=== PATIENT | female | born 1940 | race Caucasian/White ===

== ENCOUNTER 2016-12-19 21:24 | Inpatient (IN) | payer BC, OTHER ==
--- NOTE | ~2016-12-19 | HP ---
History And Physical [place] [id number] [facility] [place]. [address] NAME: LALA INGRAM : 40 STATUS : ADM IN [facility]#: [id number] AGE: 76 ADM/REG DATE : 12/20/16 MR#: [id number] REPORT SERV DATE: 12/20/16 DICTATED BY: SEEMA LEONARDO DATE: 12/20/16 REPORT STATUS : Draft TRANSCRIBED BY: MODL DATE: 12/20/16 DATE OF ADMISSION: 12/20/2016 CHIEF COMPLAINT: Abnormal lab. HISTORY OF PRESENT ILLNESS: A 76-year-old white female transferred from [facility] to [facility] Emergency Room for the above complaint. Due to the patient's ventilatory status, full history and physical exam difficult to obtain. Chart and staff were reviewed. The patient is followed by [facility] at [facility] for multiple chronic problems-please see old notes. Unfortunately her main one is respiratory failure and on chronic trach and ventilator. Her baseline labs tend to run around BUN of 40 to 50s and creatinine from 1 to 2s with GFR from 46 down to 20. She had normal labs drawn and was noted to have abnormal labs. She was therefore sent to the emergency room for workup. There the patient was found to be hypotensive for a questionable reason, acute kidney injury, hyperkalemic, and other multiple abnormalities, therefore she was admitted to the ICU for continued medical care. Currently, the patient is on the vent, somewhat more alert, is doing better overall, and is being followed by Nephrology. ALLERGIES: SULFA. MEDICATIONS: Please see MAR. PAST MEDICAL HISTORY: The patient is currently at [facility] for chronic respiratory failure with trach and vent, morbid obesity, hypertension, obstructive sleep apnea, cor pulmonale, history of atrial fibrillation, history of CVA, COPD, asthma, CHF of questionable kind, obesity, hypoventilatory syndrome, pulmonary hypertension, and anxiety. PAST SURGICAL HISTORY: Trach, cholecystectomy, colon surgery, cataract surgery, hysterectomy, appendectomy, knee surgery, and pacemaker. SOCIAL HISTORY: The patient resides at [facility] at [facility], , does have a daughter, former smoker. FAMILY HISTORY: Mother with stroke; father with coronary artery disease; and sister with cancer. REVIEW OF SYSTEMS: Unable to obtain due to the patient's decreased mental status. PHYSICAL EXAMINATION: VITAL SIGNS: Please see ICU flow sheet. GENERAL: White female responds to simple questions. HEAD: Normocephalic, atraumatic. History And Physical [address] [address] NAME: LALA INGRAM : 40 STATUS : ADM IN [facility]#: [id number] AGE: 76 ADM/REG DATE : 12/20/16 MR#: [id number] REPORT SERV DATE: 12/20/16 DICTATED BY: SEEMA LEONARDO DATE: 12/20/16 REPORT STATUS : Draft TRANSCRIBED BY: MODRohini DATE: 12/20/16 EYES: Anicteric. ENT: Poor dentition. NECK: Trach with no redness or swelling or discharge. She does have a right-sided rash on her neck area of questionable etiology. LUNGS: Bilateral upper respiratory congestion. HEART: Currently she is regular rate and rhythm without murmurs, gallops, or rubs. ABDOMEN: Obese, old surgical scars, otherwise nontender. : Mendoza is present with urine output. EXTREMITY: Wasting is present. LYMPH: Trace edema. MUSCULOSKELETAL: Good movement. NEUROLOGIC: Responds to simple commands. LABORATORY DATA: CBC shows WBC 6, H and H 9.2 and 30.2, and PLT 234. INR 1.1. Chemistry shows Na 141, K 6.8, CO 109, CO2 of 25, BUN 114, creatinine 2.84, GFR 15. Glucose 109. Calcium 8.2 (L). Magnesium 3.1(H). Albumin 2.9 (L). Liver function tests are unremarkable. Beta natriuretic peptide is 287. Initial cardiac enzymes negative. A.m. cortisol level was fine at 29.3. Initial blood gas showed pH 7.23, pCO2 of 53, PO2 of 132, bicarb 21, and O2 saturation 96% on SIMV ventilatory settings. Urinalysis initially done by Mendoza collection is cloudy with large LE and many wbc's and few bacteria. Cultures pending at this time. IMAGING: Chest x-ray initially done in the emergency room shows venous congestion, interstitial edema with left basilar consolidation or atelectasis, and questionable small left pleural effusion. There also continues to be right basilar atelectasis. CT abdomen and pelvis. There is mildly distended redundant sigmoid colon although no manolo bowel obstruction is seen. Bibasilar atelectasis, mild cardiomegaly, otherwise unremarkable. CONSULTATION: Renal consult-appreciate their help. IMPRESSION: 1. Acute respiratory failure with hypercapnia and hypoxic symptoms on chronic vent with trach. 2. Hypotension-questionable cause. 3. Acute kidney injury on chronic kidney disease stage 4 to 5 at this time. 4. Anemia-chronic disease. 5. Pyuria. 6. Metabolic acidosis with acute respiratory acidosis. 7. History of chronic obstructive pulmonary disease and asthma. 8. Obstructive sleep apnea with obesity hypoventilatory syndrome. 9. Morbid obesity. 10.Pulmonary hypertension. PLAN: 1. We will follow ventilatory status. The patient is on Passy-Mayra valve during the day and vent at night. We will watch symptoms and treat accordingly. The patient is at [address] [address] NAME: LALA INGRAM : 40 STATUS : ADM IN [facility]#: [id number] AGE: 76 ADM/REG DATE : 12/20/16 MR#: [id number] REPORT SERV DATE: 12/20/16 DICTATED BY: SEEMA LEONARDO DATE: 12/20/16 REPORT STATUS : Draft TRANSCRIBED BY: MODL DATE: 12/20/16 risk for worsening symptoms. 2. The patient is resolving her hypercapnic respiratory failure. We will watch her O2 sats and follow symptoms otherwise. 3. Consult Renal and follow with them. The patient is at risk for end-stage renal disease. 4. Follow H and H as the patient is at risk for worsening hypoxia with decreased H and H. 5. Follow up on urine and treat accordingly as the patient is at risk for pyelonephritis. 6. Continue medications as the patient is at risk for acute exacerbation of her COPD. 7. Head of bed at 30 degrees and we will feed but the patient is at risk for aspiration. 8. DVT precautions with sequential pneumatic device and anticoagulation. RH/MODL Seema Leonardo M.D. / [id number] CC: Nhan Robins M.D.
--- NOTE | ~2016-12-19 | CN ---
Consultation Report [facility] [address] [place]. [address] NAME: LALA INGRAM : 40 STATUS : ADM IN [facility]#: [id number] AGE: 76 ADM/REG DATE : 12/20/16 MR#: [id number] REPORT SERV DATE: 12/22/16 DICTATED BY: BRUNO CHAN DATE: 12/21/16 REPORT STATUS : Draft TRANSCRIBED BY: MODL DATE: 12/21/16 CARDIOLOGY CONSULT DATE OF CONSULTATION: 12/21/2016 REQUESTING PHYSICIAN: Hector King M.D. REASON FOR CONSULTATION: Abnormal troponin. HISTORY OF PRESENT ILLNESS: Ms. Ingram is a 76-year-old female with multiple medical problems, including chronic respiratory failure status post tracheostomy; history of atrial flutter, on Eliquis; sick sinus syndrome, status post permanent pacemaker; COPD; and chronic diastolic heart failure (echo on 11/2015 with EF 60% and LVH) presented to the ER as a transfer from longterm facility for hypotension and acute renal failure with hyperkalemia. Etiology has been determined to be sepsis secondary to urinary tract infection. Due to hypotension and underlying paced rhythm, serial troponins were checked with an initial of 0.02 trending up to 0.08 in the setting of her critical illness and acute kidney injury. She had some vague atypical chest discomfort and some chronic dyspnea. She has had no worsening shortness of breath. ECG is sinus rhythm and paced. She requires assistance due to her chronic comorbidities. REVIEW OF SYSTEMS: Pertinent positives and negatives are as outlined above, all other negative. PAST MEDICAL HISTORY: 1. Sick sinus syndrome, status post permanent pacemaker. 2. History of atrial flutter, on chronic Eliquis. 3. Chronic respiratory failure, status post tracheostomy. 4. Chronic diastolic heart failure. 5. COPD. MEDICATIONS: Her current home medications are DuoNeb as directed, albuterol inhaler as directed, aspirin 81 mg daily, iron supplementation, Maria 180 daily, subcu heparin twice daily, nitroglycerin p.r.n., Singulair 10 mg daily, Dulera inhaler as directed, Protonix 40 mg daily, prednisone as directed, Zantac as directed, Zoloft 100 mg daily, Carafate as directed, Spiriva inhaler. ALLERGIES: SULFA ANTIBIOTICS WHICH CAUSE A RASH. ELIQUIS DISCONTINUED FOR CHRONIC SUBCU HEPARIN AND ASPIRIN WHILE IN A [facility] FACILITY. SOCIAL HISTORY: She is a resident of longterm facility with chronic respiratory failure. She has a remote history of tobacco use, but quit many years ago. She does not consume alcohol or use illegal drugs. Consultation Report [place] [id number] [place]. [address] NAME: LALA INGRAM : 40 STATUS : ADM IN [facility]#: [id number] AGE: 76 ADM/REG DATE : 12/20/16 MR#: [id number] REPORT SERV DATE: 12/22/16 DICTATED BY: BRUNO CHAN DATE: 12/21/16 REPORT STATUS : Draft TRANSCRIBED BY: NELLY DATE: 12/21/16 FAMILY HISTORY: No significant premature CAD, cardiomyopathy, or sudden . PHYSICAL EXAMINATION: PHYSICAL EXAMINATION VITALS: Temp is afebrile, Pulse is paced at 70, Respirations 16, BP is 98/70 on no pressers, weight is 125 kg. GENERAL: Well-developed female who is obese and chronically ill-appearing with tracheostomy tube in place. HEENT: Sclerae anicteric, mucous membranes moist and without lesions. Tracheostomy tube in place. NECK: No jugular venous distention seen. LUNGS: Decreased breath sounds throughout with no wheezes or crackles. CARDIOVASCULAR: Regular with distant S1 and S2. No audible S3. No audible murmurs. No parasternal lift. ABDOMEN: Obese, soft with positive and normoactive bowel sounds. PULSES: Radial and dorsalis pedis pulses 2+ and symmetric. EXTREMITIES: Warm with trivial edema. IMPRESSION: 1. Abnormal troponin, type 2 myocardial infarction consistent with demand ischemic event. 2. Sepsis. 3. Urinary tract infection. 4. Acute renal failure on chronic kidney injury. 5. Sick sinus syndrome, status post permanent pacemaker. 6. Chronic respiratory failure. 7. Chronic diastolic heart failure. 8. History of atrial flutter managed on chronic subcu heparin and aspirin. PLAN: Ms. Ingram has had a minimal increase in troponin in the setting of her critical illness. Recommend echocardiogram. Continue medical management with conservative therapy at this time. She is on subcu heparin and aspirin. No beta blockers due to hypotension. No ZAFAR/ARB due to hypotension and acute renal failure. No plans for aggressive cardiac intervention at this time. GILDARDO/NELLY Bruno Chan M.D. / [id number] CC: Nhan Robins M.D.
--- NOTE | ~2016-12-19 | EEG ---
Electroencephalogram [facility] [address] [place]. [address] NAME: LALA INGRAM : 40 STATUS : ADM IN PAT#: [id number] AGE: 76 ADM/REG DATE : 12/20/16 MR#: [id number] REPORT SERV DATE: 12/23/16 DICTATED BY: DATE: REPORT STATUS : Draft TRANSCRIBED BY: MODL DATE: 12/23/16 CLINICAL INDICATION: Possible seizure. DESCRIPTION: This EEG was performed using 10/20 electrode placement system. During the EEG study, symmetric background activity with a mild generalized slowing was seen. Predominant occipital rhythm of roughly 6-7 hertz. Photic stimulation was performed, but hyperventilation was not performed secondary to the patient's underlying medical conditions. During the EEG study, the patient was noted to have minimal driving response during photic stimulation, otherwise the patient achieved drowsy state during the EEG study. No focal abnormalities, seizure activity, or seizure discharge was otherwise seen. INTERPRETATION: This EEG study obtained during awake and drowsy state may be considered mildly abnormal secondary to mild generalized slowing. No focal abnormalities, seizure activity, or seizure discharge were otherwise noted. Of note, negative EEG does not rule out seizure disorder. Clinical correlation is recommended. [facility]/MODL Braulio Mireles MD / [id number] CC: Nhan Robins M.D.
--- NOTE | ~2016-12-19 | CN ---
Consultation Report [facility] [address] [place]. [address] NAME: LALA INGRAM : 40 STATUS : ADM IN [facility]#: [id number] AGE: 76 ADM/REG DATE : 12/20/16 MR#: [id number] REPORT SERV DATE: 12/20/16 DICTATED BY: ANI PERDOMO DATE: 12/20/16 REPORT STATUS : Draft TRANSCRIBED BY: MODL DATE: 12/20/16 PULMONARY AND CRITICAL CARE MEDICINE CONSULTATION DATE OF CONSULTATION: 12/20/2016 REASON FOR CONSULTATION: Ventilator management in a chronically ventilated patient from [facility]. HISTORY OF PRESENT ILLNESS: The patient is a 76-year-old lady who was transferred from [facility] earlier this evening for suspected infection. She was seen by Dr. Tong in the emergency department and was found to have acute renal failure and dehydration and had poor venous access, thus a central line was placed. She was also quite hyperkalemic with potassium of 6.8, and she was medically managed with fluid insulin D50 and high-dose albuterol with improvement to 5.3, on followup labs. She has what appears to be prerenal azotemia, acute kidney injury, superimposed on chronic kidney disease and Nephrology has been consulted for assistance. The patient is awake, alert, and oriented asking for pain medicine. She follows commands without difficulty. We have been asked to assist with management of her ventilator during her hospitalization. PAST MEDICAL HISTORY: Includes morbid obesity, hypertension, obstructive sleep apnea with cor pulmonale status post tracheostomy, atrial fibrillation, prior CVA, obstructive lung disease (combination of asthma and COPD), congestive heart failure, and anxiety. SOCIAL HISTORY: Pacemaker 03/21/2016, knee arthroplasty, cholecystectomy, colon surgery, appendectomy, hysterectomy, and cataract surgery. SOCIAL HISTORY: She is a former smoker and now living in a long term on mechanical ventilation chronically. She is dependent on nursing staff for activities of daily living. No alcohol or illicit drug use. FAMILY HISTORY: Mother had a stroke. Father had coronary artery disease. Sister had cancer. ALLERGIES: INCLUDE SULFA WITH UNKNOWN REACTION. HOME MEDICATIONS: Extensive and include probiotic, aspirin, ferrous sulfate, Protonix, heparin, chlorhexidine, prednisone, Zoloft, Dulera, melatonin, loperamide, Flonase, Singulair, Zantac, Nephro-Rose Marie, banana flakes, Maria, Voltaren gel, Astelin nasal spray, Spiriva, Neurontin, Carafate, Tylenol, Xanax, Nitrostat, Phenergan, Oxbow, guaifenesin syrup, and Chloraseptic spray. Please see her detailed medication administration record in the system for exact doses and frequency of her medications. Advanced directive or living, she has completed a POLST form and is a full code and wants long-term ventilation and artificial nutrition if needed. Consultation Report [place] [id number] [facility] [place]. [address] NAME: LALA INGRAM : 40 STATUS : ADM IN [facility]#: [id number] AGE: 76 ADM/REG DATE : 12/20/16 MR#: [id number] REPORT SERV DATE: 12/20/16 DICTATED BY: ANI PERDOMO DATE: 12/20/16 REPORT STATUS : Draft TRANSCRIBED BY: NELLY DATE: 12/20/16 REVIEW OF SYSTEMS: Review of systems was completed with the patient in the MICU and was negative except for those points described above in the history of present illness section of the dictation. PHYSICAL EXAMINATION: VITAL SIGNS: Heart rate is 72, blood pressure is 103/69. She is afebrile, breathing 16 times per minute with an oxygen saturation of 97% on 30% FiO2. GENERAL: She is a morbidly obese, chronically ill-appearing lady who is in no acute distress. She is cooperative and interactive with examination and is able to mouth words. Do respond to questions and commands. HEENT: Head is atraumatic and normocephalic. Pupils are equal, round, and reactive to light, evidence of previous cataract surgery. Ears, nose, and mouth are unremarkable. She has poor oral dentition and moist oral mucosa. She has a trach which is clean, dry, and intact with mild JVD. She has diminished breath sounds bilateral bases with a few basilar crackles. S1-S2 brisk cap refill distal extremity on low-dose Levophed titration. ABDOMEN: Soft, nontender, nondistended. Morbidly obese with bowel sounds audible in all four quadrants. No appreciable peritoneal signs. PEG tube with mild erythema about the insertion site. : A Mendoza catheter is indwelling and draining translucent yellow urine. EXTREMITIES: With 1+ pitting edema bilaterally. Onychomycosis of the toenails and slightly pale skin. No rashes appreciated. LYMPHATIC: Unremarkable. NEUROLOGIC: Grossly intact and appears to be at her baseline. PSYCHIATRIC: Appropriate to situation. DIAGNOSTIC DATA: Personal review of diagnostic workup completed in the emergency department today; arterial blood gas shows a pH of 7.23, pCO2 53, PO2 of 132, base excess -5.5, bicarb 21.9 and oxygen saturation 96.5% on 35% inspired FiO2. A chest pain profile shows a CBC with normal white blood cell count of 6.1, hemoglobin and hematocrit are depressed at 9.2 and 30.2, and (normochromic normocytic) RDW is mildly elevated at 715.3, coags within normal limits with an INR of 1.1. Chemistry profile is markedly abnormal with a sodium of 141, potassium is 6.8, which is improved to 5.3 with fluids and medical management of hyperkalemia. Chloride is 109, carbon dioxide is 25, which is actually significant lower than her baseline of around 40 in the setting of obesity, hypoventilation, and chronic CO2 retention. BUN and creatinine are elevated at 114 and 2.84 with a calculated GFR of around 15 mL/minute by Cockcroft Gault calculation, magnesium is 3.1. Troponin is unremarkable. Liver function tests are unremarkable. A BNP level was 288. Lactate is 0.9. The urinalysis shows many white blood cell clumps with large leukocyte esterase, negative nitrite. EKG shows a paced ventricular rhythm with a rate of 70 and a portable chest x-ray shows tracheostomy in place with hilar prominence bilaterally, pacemaker and a blunting of the left costophrenic angle concerning for either effusion or infiltrate. IMPRESSION: 1. Chronic hypoxemic and hypercapnic respiratory failure. 2. Obstructive lung disease, combination of asthma and chronic obstructive pulmonary Consultation Report [address] [place]. [address] NAME: LALA INGRAM : 40 STATUS : ADM IN [facility]#: [id number] AGE: 76 ADM/REG DATE : 12/20/16 MR#: [id number] REPORT SERV DATE: 12/20/16 DICTATED BY: ANI PERDOMO DATE: 12/20/16 REPORT STATUS : Draft TRANSCRIBED BY: NELLY DATE: 12/20/16 disease by old records. 3. Obstructive sleep apnea/obesity hypoventilation syndrome with chronic CO2 retention. 4. Morbid obesity. 5. Acute renal failure with hyperkalemia. 6. Metabolic acidosis with superimposed respiratory acidosis. 7. Normochromic normocytic anemia of chronic disease. 8. Pyuria. 9. Pulmonary hypertension. PLAN: We will make adjustments to the patient's mechanical ventilator. She came in on SIMV mode with a tidal volume of over 600. We will institute a lung protective ventilation strategy with CMV with increase in ventilatory rate to maintain adequate ventilation in light of her mild respiratory acidosis. We will increase the rate as needed to blow off that CO2 and treatment of her sepsis should also help correct her acid-base abnormality. Dr. King has already given orders for treatment of her sepsis, and she is on broad- spectrum antibiotics and Levophed as needed for hemodynamic support. She is receiving IV hydration and her potassium has been corrected with Nephrology consult to see tomorrow morning. She is a full code. We will continue to follow along for adjustments of mechanical ventilation. Please feel free to call with questions. AVE/NELLY Ani Perdomo MD / [id number] CC: Nhan Robins M.D.
--- NOTE | ~2016-12-19 | CN ---
Consultation Report [facility] [address] [place]. [address] NAME: LALA INGRAM : 40 STATUS : ADM IN [facility]#: [id number] AGE: 76 ADM/REG DATE : 12/20/16 MR#: [id number] REPORT SERV DATE: 12/26/16 DICTATED BY: BENSON RUSSO DATE: 12/26/16 REPORT STATUS : Draft TRANSCRIBED BY: MODL DATE: 12/26/16 INFECTIOUS DISEASE CONSULTATION DATE OF CONSULTATION: 12/26/2016 REASON FOR CONSULTATION: Antibiotic recommendation. HISTORY OF PRESENT ILLNESS: This is a 76-year-old female with past medical history notable for obesity, obstructive sleep apnea, hypertension, cor pulmonale, atrial fibrillation, previous CVA, COPD, and congestive heart failure. She has a chronic trach and is on the ventilator at baseline. Apparently though, she does not have a chronic Mendoza catheter and she is able to communicate to me now that is the case. She was admitted to [facility] on 12/20/2016 after developing acute kidney injury and hypotension. The patient's creatinine was normal earlier this month, but on 12/15/2016 had risen to 2.32, and on admission on 12/19/2016 was up to 2.84. She also was relatively hypotensive on admission with blood pressure as low as 82/43. She has had no fever, but her white blood cell count which was 6.1 initially was up to 16.6 the morning after admission and procalcitonin on 12/21/2016 was 0.81. After blood, urine, and sputum cultures were obtained, she was started on antibiotics with vancomycin and meropenem along with Solu-Medrol. The higher white blood cell count, I believe, was after her first dose of Solu-Medrol. Her chest x-rays have not shown any clear new infiltrates, although are somewhat poor quality portable films. Her admission CT scan of her abdomen and pelvis looking at her kidneys did show of her lung bases. There was left lower lobe atelectasis, although not much of her left lower lung edwards was visualized. The patient has improved. In general, she has been hemodynamically stable. Her acute kidney injury has resolved. Her blood cultures have returned negative. Urine culture has grown 100,000 colonies of an ESBL E coli. Sputum culture has grown abundant Acinetobacter, which is resistant to carbapenems along with Proteus and a third gram-negative yojana. Her admission urinalysis showed 63 white blood cells and large leukocyte esterase, and the patient tells me she did have dysuria prior to admission. PAST MEDICAL HISTORY: As outlined above. In addition, she has had cholecystectomy, hysterectomy, right total knee arthroplasty, appendectomy, and pacemaker placement. ALLERGIES: SULFA. PRESENT MEDICATIONS: In addition to the antibiotics include Eliquis, aspirin, Coreg, Pepcid, iron, Flonase, Neurontin, insulin, Keppra, Imodium, Claritin, melatonin, Solu-Medrol 60 mg daily, Singulair, Nephrocaps, Florastor, Zoloft, Carafate, thiamine, and Spiriva. SOCIAL HISTORY: Past smoker. Nondrinker. FAMILY HISTORY: Notable for mother with CVA. Father with coronary artery disease. REVIEW OF SYSTEMS: Consultation Report [address] [place]. [address] NAME: LALA INGRAM : 40 STATUS : ADM IN [facility]#: [id number] AGE: 76 ADM/REG DATE : 12/20/16 MR#: [id number] REPORT SERV DATE: 12/26/16 DICTATED BY: BENSON RUSSO DATE: 12/26/16 REPORT STATUS : Draft TRANSCRIBED BY: NELLY DATE: 12/26/16 The patient did have some altered mental status and possible seizure activity during this admission and was evaluated by Neurology and started on Keppra. No further episodes of this and her mental status have normalized. No diarrhea. PHYSICAL EXAMINATION: GENERAL: This is an obese female, who is afebrile. She is alert and responds to questions. VITAL SIGNS: Blood pressure 100/53, pulse 70, she is on the ventilator FiO2 of 30%, CMV mode. HEAD AND NECK: Other than her tracheostomy is unremarkable. LUNGS: Clear to auscultation anteriorly and laterally. CARDIAC: Shows no murmur, gallop, or rub. ABDOMEN: Obese, soft. She seems to have a ventral hernia. Nontender. EXTREMITIES: Showed trace edema in lower extremities. She has a peripheral IV in her left upper extremity without phlebitis. SKIN: Without rash. LABORATORY STUDIES: White blood cell count yesterday 5.5, hemoglobin 8.3, platelets 183. Creatinine today is 0.55. Liver function test earlier this admission normal. Admission lactate was 0.9. Microbiology studies as outlined above. Radiographic studies as noted. She also had a transthoracic echocardiogram, which showed an ejection fraction of 55%. IMPRESSION: Probable sepsis on admission secondary to an Escherichia coli urinary tract infection. The patient has improved on meropenem, which would not be effective against the highly resistant Acinetobacter that grew from her sputum culture. I do not, therefore, think she came in with an Acinetobacter pneumonia. PLAN: 1. We will change the meropenem to Zosyn. The DAVID for Zosyn for the E coli is less than or equal to 16, so it ought to be effective in the urinary tract for this pathogen. I recommend two to three more days of therapy. We will check a followup procalcitonin tomorrow. 2. Continue strict contact isolation for the Acinetobacter. /MODL Benson Russo M.D. / [id number] CC: Nhan Robins M.D. UNKNOWN
--- NOTE | ~2016-12-19 | DS ---
Discharge Summary [facility] [address] [place]. [address] NAME: LALA INGRAM : 40 STATUS : DIS IN PAT#: [id number] AGE: 76 ADM/REG DATE : 12/20/16 MR#: [id number] REPORT SERV DATE: 01/10/17 DICTATED BY: SEEMA LEONARDO DATE: 01/09/17 REPORT STATUS : Draft TRANSCRIBED BY: NELLY DATE: 01/09/17 Data Collection from hospitalization DISCHARGE DIAGNOSES: 1. Chronic respiratory failure secondary to hypercapnia/hypoxia. 2. Anemia secondary to chronic disease. 3. History of paroxysmal atrial flutter. 4. Anticoagulation therapy. 5. Anxiety and depression. 6. Hypertension. 7. Sputum culture positive, resistant Acinetobacter. 8. Chronic diastolic congestive heart failure. 9. Debility. 10.Morbid obesity. 11.Obstructive sleep apnea. 12.Cor pulmonale. 13.History of cerebrovascular accident. 14.Chronic obstructive pulmonary disease. 15.Hypoventilatory syndrome. 16.Pulmonary hypertension. CONSULTATIONS: 1. Ani Vu MD. 2. Hector Mir M.D. 3. Bruno Sue M.D. 4. Jayden Mishra M.D. 5. Dany Russo M.D. PROCEDURES: 1. CT scan of the abdomen and pelvis without contrast, 12/19/2016. 2. CT scan of the brain without contrast, 12/22/2016. 3. Carotid blood flow study, 12/23/2016. 4. Electroencephalogram, 12/23/2016. DISCHARGE MEDICATIONS: Eliquis 5 mg twice a day, Halfprin 81 mg every morning, Voltaren 4 g topically four times a day, Astelin 2 sprays nasally twice a day, Bumex 1 mg twice a day at 9:00 a.m. and 4:00 p.m., Coreg 3.125 mg twice a day, Peridex rinse 15 mL twice a day as instructed, Zantac 150 mg twice a day, ferrous sulfate 325 mg twice a day, Flonase nasal spray two sprays nasally every morning, Neurontin 300 mg twice a day, Keppra 500 mg twice a day, Claritin 10 mg daily, Maria 180 mg every morning, melatonin 5 mg at bedtime, Singulair 10 mg at bedtime, Nephro-Rose Marie 1 tablet every morning, potassium chloride SR 20 mEq daily, Florastor capsules one capsule twice a day, Zoloft 100 mg every morning, thiamine 100 mg daily, Spiriva one capsule via HandiHaler daily, Deltasone 40 mg with breakfast, Dulera two puffs via inhaler twice a day, Protonix 40 mg before breakfast, DuoNeb 1 nebulized inhaler four times a day, Banatrol 1 packet twice a day, Tylenol 325 mg every four hours as needed, Xanax 1 mg every 8 hours as needed, Nitrostat 0.4 mg sublingually as needed, Phenergan 25 mg per rectum every six hours as needed, [place] 5/325 one tablet every 12 hours as needed. Discharge Summary [address] [address] NAME: LALA INGRAM : 40 STATUS : DIS IN PAT#: [id number] AGE: 76 ADM/REG DATE : 12/20/16 MR#: [id number] REPORT SERV DATE: 01/10/17 DICTATED BY: SEEMA LEONARDO DATE: 01/09/17 REPORT STATUS : Draft TRANSCRIBED BY: NELLY DATE: 01/09/17 CONDITION ON DISCHARGE: Stable. DISPOSITION: The patient was discharged to [facility] on a low sodium, low-cholesterol diet with activities as instructed. HOSPITAL COURSE: This is a 76-year-old female who was transferred from [facility] to the [facility] Emergency Room with the chief complaint of abnormal labs. Due to the patient's ventilatory status, full history and physical exam was difficult to obtain. She is followed by the [facility] [place] at [facility] for multiple chronic problems. Unfortunately her main one is respiratory failure and she is on chronic trach and ventilator. She had labs drawn and was noted to have abnormal labs. She was therefore sent to the emergency room for workup. She was found to be hypotensive and had acute kidney injury. She was hyperkalemic and had other multiple abnormalities. She was admitted to the hospital into the ICU at this time for further evaluation and treatment. Upon admission, chest x-ray in the emergency room had shown venous congestion and interstitial edema with left basilar consolidation or atelectasis and questionable small left pleural effusion. There continued to be right basilar atelectasis. CT scan of the abdomen and pelvis was performed and revealed mildly distended redundant sigmoid colon although no manolo bowel obstruction was seen. There was bibasilar atelectasis and mild cardiomegaly. This felt to have acute respiratory failure with hypercapnia and hypoxic symptoms. The patient is on Passy-Mayra valve during the day and ventilator at night. The head of her bed was elevated at 30 degrees. Sequential pneumatic device and anticoagulation were in place. The patient was seen by Dr. Ani Vu regarding ventilator management in a chronically ventilated patient. She could follow commands without difficulty. Adjustments were made to the patient's mechanical ventilator. She came in on SIMV mode with tidal volume over 600. We were going to institute a lung protective ventilation strategy with CMV with increase in ventilatory rate to maintain adequate ventilation in light of her mild respiratory acidosis. We would increase the rate as needed to blow off that CO2 and treatment of her sepsis should also help correct her acid-base abnormality. She was on broad-spectrum antibiotics and Levophed as needed for hemodynamics support. IV hydration continued. Her potassium had been corrected. She is a full code at this time. She was also seen by Dr. Hector Mir regarding acute kidney injury. White blood cell count was 16.6. Creatinine level was 2.84. Urinalysis was suggestive of a urinary tract infection. She was felt to have acute kidney injury, possible prerenal state versus acute tubular necrosis from hypotension. No nephrotoxic medications were identified. IV fluids were continued. She agreed with pressors, medical therapy for hyperkalemia would be continued. On , she was seen by Dr. Bruno Sue regarding abnormal troponin. Serial troponins were checked with an initial troponin of 0.02 trending up to 0.08 in the setting of her critical illness and acute kidney injury. She had some vague atypical chest discomfort and some chronic dyspnea. She had no worsening shortness of breath. ECG revealed sinus rhythm and paced rhythm. She did require assistance due to her chronic comorbidities. She was felt to have type 2 myocardial infarction consistent with demand ischemic event as well as sepsis. She also has acute renal failure on chronic kidney injury. Echocardiogram was going to be performed. Medical management would be continued with conservative therapy at this time. She was on subcu heparin and aspirin. No beta-blockers will be given due to Discharge Summary [place] [address] [place]. [address] NAME: LALA INGRAM : 40 STATUS : DIS IN PAT#: [id number] AGE: 76 ADM/REG DATE : 12/20/16 MR#: [id number] REPORT SERV DATE: 01/10/17 DICTATED BY: SEEMA LEONARDO DATE: 01/09/17 REPORT STATUS : Draft TRANSCRIBED BY: MODRohini DATE: 01/09/17 hypotension. No ZAFAR inhibitor or ARB due to hypotension and acute renal failure. There were no plans for aggressive cardiac intervention at this time . She was still on supplemental O2 and Levophed. Creatinine was decreasing. It was now 1.28. On 12/22/2016, she was seen by Dr. Jayden Mishra. A CT scan of the brain without contrast had been performed. This did not show any acute changes. The patient was waking up but was combative. She does not normally behave that way. She had been doing fine as usual and was on the trach and was able to communicate to the nurse around 6 p.m. without any difficulty but later on when the nurse went to her room she was posturing with both hands up in the air and then they were spit and the patient would not respond. She even tried a sternal rub and the patient was not responding and was not opening her eyes. The nurse thought she may have had a stroke and she activated stroke pager and had called Dr. Jayden Mishra. An EEG was requested. The patient had an altered mental status with tonic contraction of the hands and arms and the body suggestive of possible seizure and probable neuropathy. Later in the day, the patient was conversive. Creatinine had normalized with good diuresis. She had been found to have ESBL E. coli urinary tract infection/sepsis. Meropenem was being given. On the , Haldol was decreased as well as Keppra. Ammonia, TSH, free T4, vitamin B12, and folate were going to be checked. Thiamine was continued. She was evaluated by Physical Therapy. Electroencephalogram was performed. This was considered mildly abnormal secondary to mild generalized slowing. No focal abnormalities, seizure activity, or seizure discharges were otherwise noted. Negative EEG does not rule out seizure disorder. A carotid blood flow study was also performed. Echocardiogram was performed as well. On 12/24/2016, she had no new complaints. Keppra was adjusted. The patient had atrial flutter secondary to recent attempts to place the patient back on a T-collar. The patient was now back to a heart rate in the 70s with ventricular paced rhythm. Troponin level was going to be checked. On 12/26/2016, the patient was seen by Dr. Dany Russo regarding antibiotic recommendations. She had been started on vancomycin and meropenem along with Solu-Medrol after blood, urine, and sputum cultures had been obtained after admission. The higher white blood cell count was felt to be after the first dose of Solu-Medrol. Chest x-rays had not shown any clear new infiltrate although were somewhat poor quality portable films. Blood cultures had returned negative. Urine culture had grown 100,000 colonies of ESBL E. coli. Sputum culture had grown abundant Acinetobacter which was resistant to carbapenems along with Proteus and a third Gram-negative yojana. The patient said she did have dysuria prior to admission. She was felt to have probable sepsis on admission secondary to E. coli urinary tract infection. She had improved on meropenem which would not be effective against a highly resistant Acinetobacter that grew from the sputum culture. He did not believe she came in with Acinetobacter pneumonia. Meropenem was changed to Zosyn. We would continue strict contact isolation for the Acinetobacter. Next day, she was awake and alert. Creatinine level was now 0.57. Sertraline and Xanax were continued for anxiety. Zosyn was continued. On the , she was afebrile. White count was 7.8. Chest x-ray showed questionable increased vascular congestion. Zosyn was going to be discontinued after the last dose later in the day. She was evaluated by Physical Therapy. Over the next couple of days, she remained comfortable. She was awake and alert. Ventilator support continued. Discharge planning was performed. On 12/30/2016, the patient reported that she was doing well. She had no complaints of chest pain, shortness of breath, nausea, vomiting or Discharge Summary [address] [place]. [address] NAME: LALA INGRAM : 40 STATUS : DIS IN PAT#: [id number] AGE: 76 ADM/REG DATE : 12/20/16 MR#: [id number] REPORT SERV DATE: 01/10/17 DICTATED BY: SEEMA LEONARDO DATE: 01/09/17 REPORT STATUS : Draft TRANSCRIBED BY: NELLY DATE: 01/09/17 abdominal pain. She said she had slept better the previous evening. Discharge instructions were given. Due to her improved and stable condition, she was discharged to [facility] with the above-stated instructions. Information collected by: Khadijah Smallwood I submit the above information as my discharge summary. BETH/NELLY Seema Leonardo M.D. / [id number] CC: Adriana Pacheco M.D. Hal Hill, M.D. Claude Galphin, M.D. Allen E Atchley, M.D. [facility]
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
--- NOTE | ~2016-12-19 | CN ---
Consultation Report [facility] [address] [place]. [address] NAME: LALA INGRAM : 40 STATUS : ADM IN [facility]#: [id number] AGE: 76 ADM/REG DATE : 12/20/16 MR#: [id number] REPORT SERV DATE: 12/20/16 DICTATED BY: MOOKIE MENSAH DATE: 12/20/16 REPORT STATUS : Draft TRANSCRIBED BY: MODL DATE: 12/20/16 NEPHROLOGY CONSULTATION DATE OF CONSULTATION: 12/20/2016 INDICATION FOR CONSULTATION: Acute kidney injury. HISTORY OF PRESENT ILLNESS: Mrs. Ingram is a 76-year-old female who currently resides at [facility] and is seen for acute kidney injury with hyperkalemia. The patient's serum creatinine was 1.0 on 12/08/2016, 2.32 on 12/15/2016, and 2.47 on 12/19/2016 with a potassium of 6.8, and on 12/20/2016, her creatinine was 2.84 with a potassium of 6.8. Her BP was 79/39 at its lowest point. Her urinalysis is suggestive of a urinary tract infection. She has a chronic trach and has ventilator support at [facility]. She apparently was afebrile and was transferred due to her acute kidney injury. There are no nephrotoxic medications identified. She is noted to have a white cell count of 16.6. PAST MEDICAL HISTORY: Obstructive sleep apnea, COPD, cor pulmonale, atrial fibrillation with history of Eliquis, asthma, remote CVA, functional quadriplegia, remote pneumonia with left pleural effusion, hypertension, and anemia. PAST SURGICAL HISTORY: Cholecystectomy, hysterectomy, total knee arthroplasty, appendectomy, and colon surgery as well as pacemaker. SOCIAL HISTORY: Former smoker, living at [facility]; chronic ventilator support required. Dependent on nursing staff for activities of daily living. No alcohol or illicit drug use per chart. FAMILY HISTORY: Mother with CVA. Father with coronary artery disease. Sister with cancer per chart. ALLERGIES: SULFUR. MEDICATIONS: Probiotic, aspirin, ferrous sulfate, Protonix, heparin, chlorhexidine, prednisone, Zoloft, Dulera, melatonin, loperamide, Flonase, Singulair, Zantac, Nephro-Rose Marie, banana flakes, Maria, Voltaren gel, Astelin nasal spray, Spiriva, Neurontin, Carafate, Tylenol, Xanax, Nitrostat, Phenergan, hydrocodone, guaifenesin syrup, Chloraseptic spray. REVIEW OF SYSTEMS: Unable to obtain with the patient on vent and trach'd. PHYSICAL EXAMINATION: GENERAL: Obese female, awakens and arouses easily. VITAL SIGNS: Blood pressure 85/45, temperature 98.6, pulse 77, and respiratory rate 20. HEENT: Eyes: No scleral icterus. Pupils reactive symmetrically. Nares patent. No Consultation Report [facility] [id number] [place]. [address] NAME: LALA INGRAM : 40 STATUS : ADM IN [facility]#: [id number] AGE: 76 ADM/REG DATE : 12/20/16 MR#: [id number] REPORT SERV DATE: 12/20/16 DICTATED BY: MOOKIE MENSAH DATE: 12/20/16 REPORT STATUS : Draft TRANSCRIBED BY: NELLY DATE: 12/20/16 lesions. Throat: No injection. Mucous membranes moist. Neck: With trach. CHEST/LUNGS: Lateral crackles. No wheezes. No rhonchi. CARDIAC: Regular rate and rhythm. Unable to appreciate murmur, gallop, or rub. ABDOMEN: Ventral hernia. Bowel sounds normoactive. No hepatosplenomegaly. No guarding or tenderness. /RECTAL: Not performed. BREASTS: Not performed. EXTREMITIES: No edema. No calf tenderness. DERMIS: No rash. No skin lesions. NEUROLOGIC: Moves extremities, otherwise, unable to assess. MUSCULOSKELETAL: No deformity. IMPRESSION: 1. Acute kidney injury, possible prerenal state versus acute tubular necrosis from hypotension. No nephrotoxic medications identified, must be concerned about the possibility of infection, particularly urinary tract infection. 2. Acute respiratory failure. 3. Chronic obstructive pulmonary disease with cor pulmonale. 4. Obstructive sleep apnea. 5. History of asthma. 6. Atrial fibrillation, status post pacemaker. 7. Remote cerebrovascular accident. 8. Functional quadriplegia. 9. History of hypertension, now evidencing shock. 10.Anemia. PLAN: 1. IV fluids. 2. Concur with pressors. 3. Medical therapy for hyperkalemia. 4. Labs. 5. We will monitor for dialysis. /MODL Mookie Mensah M.D. / [id number] CC: Nhan Robins M.D.
[2016-12-19 21:13] LABS: ALLENS TEST Pos; BE (BASE EXCESS) -5.5 MEQ/L (0 +/- 2.5); CARBOXYHEMOGLOBIN 0.2 % (0-3); HCO3 (ACTUAL BICARBONATE) 21.9 MEQ/L (23-27); HEMOBLOGIN CONTENT 8.9 G/DL (12-16); INSTRUMENT SERIAL # 8087; METHEMOGLOBIN 0.3 % (0-3); MODE SIMV; O2 CONTENT 12.3 VOL% (18-24); OPERATOR ID 31061; PCO2 (CO2 TENSION) 53 MMHG (35-45); PO2 (O2 TENSION) 132 MMHG (79-93); PRESSURE SUPPORT 10 cm.H2O; SAMPLE Arterial; TIDAL VOLUME 500 ML; pH 7.23 (7.37-7.43)
[2016-12-19] MEDS ORDERED: PROBIOTIC PO (21:41)
[2016-12-19] MEDS ORDERED: HALF81 PO (21:41)
[2016-12-19] MEDS ORDERED: FERROUS SULF325 M1 PO (21:42)
[2016-12-19] MEDS ORDERED: PROTONIX PO (21:42)
[2016-12-19] MEDS ORDERED: PERIDEX MT (21:50)
[2016-12-19] MEDS ORDERED: HEPA50006 SC (21:50)
[2016-12-19] MEDS ORDERED: ZOL100 PO (21:51)
[2016-12-19] MEDS ORDERED: P10 PO (21:51)
[2016-12-19] MEDS ORDERED: DULERA 200 MCG/13 GM INH (21:52)
[2016-12-19] MEDS ORDERED: MELATONIN5 M1 PO (21:52)
[2016-12-19] MEDS ORDERED: DUONEB INH (21:52)
[2016-12-19] MEDS ORDERED: FLONASE NAS (21:53)
[2016-12-19] MEDS ORDERED: SINGULAIR1 PO (21:53)
[2016-12-19] MEDS ORDERED: ZANTAC 150 PO (21:53)
[2016-12-19] MEDS ORDERED: LOPERAMIDE 1 MG/5 ML PO (21:53)
[2016-12-19] MEDS ORDERED: NEPHRO-VITE PO (21:54)
[2016-12-19] MEDS ORDERED: ALLEGRA180 PO (21:55)
[2016-12-19] MEDS ORDERED: BANATROL PO (21:55)
[2016-12-19] MEDS ORDERED: VOLTAREN1 % TOP (21:56)
[2016-12-19] MEDS ORDERED: ASTELIN NAS (21:56)
[2016-12-19] MEDS ORDERED: SPIRIVA RESPIMAT INH (22:00)
[2016-12-19] MEDS ORDERED: NEUR300 PO (22:00)
[2016-12-19] MEDS ORDERED: T PO (22:01)
[2016-12-19] MEDS ORDERED: NITROSTAT0.4 MG SL (22:01)
[2016-12-19] MEDS ORDERED: XANAX1 MG PO (22:01)
[2016-12-19] MEDS ORDERED: SUCR PO (22:01)
[2016-12-19] MEDS ORDERED: SILTUSSIN100 MG/5 M PO (22:02)
[2016-12-19] MEDS ORDERED: PR25R PR (22:02)
[2016-12-19] MEDS ORDERED: NORCO1 TA1 PO (22:02)
[2016-12-19] MEDS ORDERED: PHENOL MT (22:03)
[2016-12-19 22:32] LABS: BASOPHILS 0.3 %; BASOPHILS ABSOLUTE 0.02 10/3/uL (0.0-0.16); EOSINOPHILS 2.5 %; EOSINOPHILS ABSOLUTE 0.15 10/3/uL (0.0-0.53); ER CBC TAT 0 Hrs 16 Mins; HEMATOCRIT 30.2 % (36.0-48.0); HEMOGLOBIN 9.2 g/dL (12.0-16.0); IMMATURE GRANULOCYTES 0.3 %; IMMATURE GRANULOCYTES ABSOLUTE 0.02 10/3/uL (0.0-0.11); LYMPHOCYTES 21.5 %; LYMPHOCYTES ABSOLUTE 1.31 10/3/uL (0.67-4.30); MEAN CORPUS HGB CONC 30.5 g/dL (32.0-36.0); MEAN CORPUSCULAR VOLUME 95.3 fL (80-100); MEAN PLATELET VOLUME 10.1 fL (9.2-13.0); MONOCYTES 8.7 %; MONOCYTES ABSOLUTE 0.53 10/3/uL (0.21-1.20); NEUTROPHILS 66.7 %; NEUTROPHILS ABSOLUTE 4.05 10/3/uL (2.02-8.40); PLATELET COUNT 234 10/3/uL (150-400); RBC DISTRIBUTION WIDTH 17.3 % (12.0-16.0); RED CELL COUNT 3.17 10/6/uL (4.0-5.6); WHITE BLOOD CELLS 6.1 10/3/uL (4.5-10.5)
[2016-12-19 22:37] LABS: MANUAL DIFF NO %
[2016-12-19 22:39] LABS: INTERNATIONAL NORMAL RATI 1.1 UNITS (-); PARTIAL THROMBO TIME 31.3 SEC (22.5-37.2); PROTIME (NOT ORD) 14.5 SEC (12.0-14.5)
[2016-12-19 22:51] LABS: ALBUMIN 2.9 G/DL (3.5-5.0); ALKALINE PHOSPHATASE 85 U/L (45-117); CALCIUM, SERUM 8.2 MG/DL (8.5-10.4); CHLORIDE, SERUM 109 MMOL/L (96-112); GLUCOSE, SERUM 109 MG/DL (60-99); SGOT(AST) 10 U/L (5-40); SGPT(ALT) 18 U/L (5-65); SODIUM, SERUM 141 MMOL/L (135-148); TOTAL BILIRUBIN 0.2 MG/DL (0-1.2); TOTAL PROTEIN 5.8 G/DL (6.0-8.5); TROPONIN I 0.02 NG/ML (<0.05)
[2016-12-19 22:53] LABS: BUN (BLOOD UREA NITROGEN) 114 MG/DL (6-23); CHEST PAIN PROFILE TAT 0 Hrs 35 Mins; CO2 (CARBON DIOXIDE) 25 MMOL/L (24-34); CREATININE 2.84 MG/DL (0.55-1.02); DIRECT BILIRUBIN < 0.1 MG/DL (0.0-0.4); GFR AFRICAN AMERICAN 18 ML/MIN (>=60); GFR NON AFRICAN AMERICAN 15 ML/MIN (>=60); INDIRECT BILIRUBIN(NOT ORDER) 0.1 MG/DL (0.1-0.9); POTASSIUM, SERUM 6.8 MMOL/L (3.5-5.3)
[2016-12-20 01:36] LABS: CALCIUM, SERUM 7.7 MG/DL (8.5-10.4); CHLORIDE, SERUM 114 MMOL/L (96-112); CO2 (CARBON DIOXIDE) 25 MMOL/L (24-34); CREATININE 2.43 MG/DL (0.55-1.02); GFR AFRICAN AMERICAN 22 ML/MIN (>=60); GFR NON AFRICAN AMERICAN 19 ML/MIN (>=60); SODIUM, SERUM 147 MMOL/L (135-148)
[2016-12-20 01:40] LABS: BUN (BLOOD UREA NITROGEN) 112 MG/DL (6-23); GLUCOSE, SERUM 49 MG/DL (60-99); POTASSIUM, SERUM 5.3 MMOL/L (3.5-5.3)
[2016-12-20 02:03] LABS: ASCORBIC ACID (UR NOT ORDER) NEG (NEG); BILIRUBIN, URINE NEGATIVE (NEG); KETONE, URINE NEGATIVE (NEG); LEUKOCYTE ESTERASE(NOT OR LARGE (NEG); NITRITE (URINE) NEG (NEG); WBC (NOT ORDERED) (RFLEX) 63 (0-5)
[2016-12-20 05:13] LABS: CALCIUM, SERUM 8.5 MG/DL (8.5-10.4); CHLORIDE, SERUM 113 MMOL/L (96-112); CREATININE 2.39 MG/DL (0.55-1.02); GFR AFRICAN AMERICAN 22 ML/MIN (>=60); GFR NON AFRICAN AMERICAN 19 ML/MIN (>=60); POTASSIUM, SERUM 5.6 MMOL/L (3.5-5.3); SODIUM, SERUM 142 MMOL/L (135-148)
[2016-12-20 05:14] LABS: BUN (BLOOD UREA NITROGEN) 105 MG/DL (6-23); CO2 (CARBON DIOXIDE) 19 MMOL/L (24-34); GLUCOSE, SERUM 151 MG/DL (60-99)
[2016-12-20 05:24] LABS: HEMOGLOBIN 10.1 g/dL (12.0-16.0); MEAN CORPUS HGB CONC 29.8 g/dL (32.0-36.0); MEAN CORPUSCULAR HEMOGLOB 28.5 pg (26.0-34.0); MEAN CORPUSCULAR VOLUME 95.5 fL (80-100); RBC DISTRIBUTION WIDTH 17.3 % (12.0-16.0); RED CELL COUNT 3.55 10/6/uL (4.0-5.6)
[2016-12-20 05:25] LABS: HEMATOCRIT 33.9 % (36.0-48.0); MANUAL DIFF YES %; PLATELET COUNT 380 10/3/uL (150-400); WHITE BLOOD CELLS 16.6 10/3/uL (4.5-10.5)
[2016-12-20 05:27] LABS: BE (BASE EXCESS) -2.7 MEQ/L (0 +/- 2.5); CARBOXYHEMOGLOBIN 1.6 % (0-3); HCO3 (ACTUAL BICARBONATE) 20.5 MEQ/L (23-27); HEMOBLOGIN CONTENT 7.6 G/DL (12-16); INSTRUMENT SERIAL # 8083; METHEMOGLOBIN 0.3 % (0-3); MODE CMV; O2 CONTENT 10.5 VOL% (18-24); OPERATOR ID 14661; PCO2 (CO2 TENSION) 29 MMHG (35-45); PO2 (O2 TENSION) 113 MMHG (79-93); SAMPLE Arterial; TIDAL VOLUME 400 ML; pH 7.47 (7.37-7.43)
[2016-12-20 06:23] LABS: BAND NEUTROPHILS 2 %; LYMPHOCYTES 21 %; LYMPHOCYTES ABSOLUTE (CALC) 3.49 10/3/uL (0.67-4.30); MONOCYTES 5 %; MONOCYTES ABSOLUTE (CALC) 0.83 10/3/uL (0.21-1.20); NEUTROPHILS ABSOLUTE (CALC) 12.28 10/3/uL (2.02-8.40); PLATELET ESTIMATE ADQ (ADEQUATE); RBC MORPHOLOGY NORM (NORMAL); SEGMENTED NEUTROPHIL (0) 72 %; TOTAL NUCLEATED CELLS 100
[2016-12-20 18:03] LABS: BUN (BLOOD UREA NITROGEN) 90 MG/DL (6-23); CALCIUM, SERUM 8.1 MG/DL (8.5-10.4); CHLORIDE, SERUM 108 MMOL/L (96-112); CO2 (CARBON DIOXIDE) 23 MMOL/L (24-34); SODIUM, SERUM 143 MMOL/L (135-148)
[2016-12-20 18:04] LABS: CREATININE 1.78 MG/DL (0.55-1.02); GFR AFRICAN AMERICAN 32 ML/MIN (>=60); GFR NON AFRICAN AMERICAN 27 ML/MIN (>=60); GLUCOSE, SERUM 235 MG/DL (60-99)
[2016-12-20 18:06] LABS: POTASSIUM, SERUM 6.3 MMOL/L (3.5-5.3)
[2016-12-21 00:24] LABS: CALCIUM, SERUM 8.7 MG/DL (8.5-10.4); CHLORIDE, SERUM 111 MMOL/L (96-112); CO2 (CARBON DIOXIDE) 25 MMOL/L (24-34); CREATININE 1.44 MG/DL (0.55-1.02); GFR AFRICAN AMERICAN 41 ML/MIN (>=60); GFR NON AFRICAN AMERICAN 35 ML/MIN (>=60); GLUCOSE, SERUM 269 MG/DL (60-99); POTASSIUM, SERUM 5.6 MMOL/L (3.5-5.3); SODIUM, SERUM 143 MMOL/L (135-148)
[2016-12-21 00:28] LABS: BUN (BLOOD UREA NITROGEN) 75 MG/DL (6-23)
[2016-12-21 03:57] LABS: CARBOXYHEMOGLOBIN 0.3 % (0-3); HCO3 (ACTUAL BICARBONATE) 25.4 MEQ/L (23-27); HEMOBLOGIN CONTENT 9.3 G/DL (12-16); INSTRUMENT SERIAL # 8083; METHEMOGLOBIN 0.3 % (0-3); O2 CONTENT 12.5 VOL% (18-24); PCO2 (CO2 TENSION) 45 MMHG (35-45); PO2 (O2 TENSION) 90 MMHG (79-93); pH 7.37 (7.37-7.43)
[2016-12-21 03:58] LABS: ALLENS TEST Pos; MODE CMV; OPERATOR ID 13415; SAMPLE Arterial; TIDAL VOLUME 450 ML
[2016-12-21 04:59] LABS: BASOPHILS 0 %; EOSINOPHILS 0 %; HEMOGLOBIN 9.3 g/dL (12.0-16.0); IMMATURE GRANULOCYTES 0.4 %; IMMATURE GRANULOCYTES ABSOLUTE 0.03 10/3/uL (0.0-0.11); LYMPHOCYTES 8.2 %; LYMPHOCYTES ABSOLUTE 0.63 10/3/uL (0.67-4.30); MEAN CORPUSCULAR HEMOGLOB 29.2 pg (26.0-34.0); MEAN CORPUSCULAR VOLUME 93.4 fL (80-100); MEAN PLATELET VOLUME 9.3 fL (9.2-13.0); MONOCYTES 3.6 %; MONOCYTES ABSOLUTE 0.28 10/3/uL (0.21-1.20); NEUTROPHILS 87.8 %; NEUTROPHILS ABSOLUTE 6.74 10/3/uL (2.02-8.40); RED CELL COUNT 3.18 10/6/uL (4.0-5.6)
[2016-12-21 05:01] LABS: HEMATOCRIT 29.7 % (36.0-48.0); MANUAL DIFF NO %; MEAN CORPUS HGB CONC 31.3 g/dL (32.0-36.0); PLATELET COUNT 239 10/3/uL (150-400); WHITE BLOOD CELLS 7.7 10/3/uL (4.5-10.5)
[2016-12-21 05:13] LABS: CALCIUM, SERUM 8.9 MG/DL (8.5-10.4); CHLORIDE, SERUM 113 MMOL/L (96-112); CO2 (CARBON DIOXIDE) 24 MMOL/L (24-34); CREATININE 1.28 MG/DL (0.55-1.02); GFR AFRICAN AMERICAN 47 ML/MIN (>=60); GFR NON AFRICAN AMERICAN 41 ML/MIN (>=60); GLUCOSE, SERUM 230 MG/DL (60-99); PHOSPHORUS, SERUM 2.1 MG/DL (2.5-4.5); POTASSIUM, SERUM 5.3 MMOL/L (3.5-5.3); SODIUM, SERUM 147 MMOL/L (135-148)
[2016-12-21 05:14] LABS: BUN (BLOOD UREA NITROGEN) 70 MG/DL (6-23); TROPONIN I 0.08 NG/ML (<0.05)
[2016-12-21 05:39] LABS: PROCALCITONIN 0.81 ng/mL (<0.5)
[2016-12-21 22:28] LABS: POTASSIUM, SERUM 4.7 MMOL/L (3.5-5.3)
[2016-12-21 22:31] LABS: TROPONIN I 0.06 NG/ML (<0.05)
[2016-12-22 03:37] LABS: ALLENS TEST Pos; BE (BASE EXCESS) 4.7 MEQ/L (0 +/- 2.5); CARBOXYHEMOGLOBIN 0.3 % (0-3); HCO3 (ACTUAL BICARBONATE) 30.8 MEQ/L (23-27); HEMOBLOGIN CONTENT 8.2 G/DL (12-16); INSTRUMENT SERIAL # 8083; METHEMOGLOBIN 0.3 % (0-3); MODE CMV; O2 CONTENT 11.1 VOL% (18-24); OPERATOR ID 31061; PCO2 (CO2 TENSION) 55 MMHG (35-45); PO2 (O2 TENSION) 97 MMHG (79-93); SAMPLE Arterial; TIDAL VOLUME 450 ML; pH 7.37 (7.37-7.43)
[2016-12-22 04:30] LABS: BASOPHILS 0 %; EOSINOPHILS 0 %; IMMATURE GRANULOCYTES 0.6 %; IMMATURE GRANULOCYTES ABSOLUTE 0.04 10/3/uL (0.0-0.11); LYMPHOCYTES 7.4 %; LYMPHOCYTES ABSOLUTE 0.51 10/3/uL (0.67-4.30); MEAN CORPUS HGB CONC 30.4 g/dL (32.0-36.0); MEAN CORPUSCULAR HEMOGLOB 28.9 pg (26.0-34.0); MEAN CORPUSCULAR VOLUME 94.9 fL (80-100); MEAN PLATELET VOLUME 9.4 fL (9.2-13.0); MONOCYTES 4.9 %; MONOCYTES ABSOLUTE 0.34 10/3/uL (0.21-1.20); NEUTROPHILS 87.1 %; NEUTROPHILS ABSOLUTE 6.02 10/3/uL (2.02-8.40); PLATELET COUNT 186 10/3/uL (150-400); RBC DISTRIBUTION WIDTH 17.2 % (12.0-16.0); RED CELL COUNT 2.77 10/6/uL (4.0-5.6); WHITE BLOOD CELLS 6.9 10/3/uL (4.5-10.5)
[2016-12-22 04:33] LABS: HEMATOCRIT 26.3 % (36.0-48.0); MANUAL DIFF NO %
[2016-12-22 04:45] LABS: CALCIUM, SERUM 8.7 MG/DL (8.5-10.4); CHLORIDE, SERUM 111 MMOL/L (96-112); CREATININE 0.84 MG/DL (0.55-1.02); GFR AFRICAN AMERICAN 78 ML/MIN (>=60); GFR NON AFRICAN AMERICAN 68 ML/MIN (>=60); GLUCOSE, SERUM 171 MG/DL (60-99); PHOSPHORUS, SERUM 2.2 MG/DL (2.5-4.5); POTASSIUM, SERUM 4.6 MMOL/L (3.5-5.3); SODIUM, SERUM 148 MMOL/L (135-148)
[2016-12-22 04:49] LABS: BUN (BLOOD UREA NITROGEN) 49 MG/DL (6-23); CO2 (CARBON DIOXIDE) 31 MMOL/L (24-34); TROPONIN I 0.06 NG/ML (<0.05)
[2016-12-22 05:47] LABS: ALBUMIN 3.1 G/DL (3.5-5.0); ALKALINE PHOSPHATASE 81 U/L (45-117); DIRECT BILIRUBIN 0.1 MG/DL (0.0-0.4); INDIRECT BILIRUBIN(NOT ORDER) 0.2 MG/DL (0.1-0.9); SGOT(AST) 11 U/L (5-40); SGPT(ALT) 29 U/L (5-65); TOTAL BILIRUBIN 0.3 MG/DL (0-1.2); TOTAL PROTEIN 5.5 G/DL (6.0-8.5)
[2016-12-22 19:29] LABS: BE (BASE EXCESS) 3.5 MEQ/L (0 +/- 2.5); CARBOXYHEMOGLOBIN 0.3 % (0-3); HCO3 (ACTUAL BICARBONATE) 28.9 MEQ/L (23-27); HEMOBLOGIN CONTENT 8.9 G/DL (12-16); INSTRUMENT SERIAL # 8083; METHEMOGLOBIN 0.3 % (0-3); MODE CMV; O2 CONTENT 12.1 VOL% (18-24); OPERATOR ID 16469; PCO2 (CO2 TENSION) 48 MMHG (35-45); PO2 (O2 TENSION) 92 MMHG (79-93); SAMPLE Arterial; TIDAL VOLUME 450 ML
[2016-12-23 05:40] LABS: BASOPHILS 0.1 %; BASOPHILS ABSOLUTE 0.01 10/3/uL (0.0-0.16); EOSINOPHILS 0 %; HEMATOCRIT 24.3 % (36.0-48.0); HEMOGLOBIN 7.5 g/dL (12.0-16.0); IMMATURE GRANULOCYTES 0.7 %; IMMATURE GRANULOCYTES ABSOLUTE 0.05 10/3/uL (0.0-0.11); LYMPHOCYTES 9.4 %; LYMPHOCYTES ABSOLUTE 0.65 10/3/uL (0.67-4.30); MEAN CORPUS HGB CONC 30.9 g/dL (32.0-36.0); MEAN CORPUSCULAR HEMOGLOB 29.2 pg (26.0-34.0); MEAN CORPUSCULAR VOLUME 94.6 fL (80-100); MEAN PLATELET VOLUME 9.3 fL (9.2-13.0); MONOCYTES 5.3 %; MONOCYTES ABSOLUTE 0.37 10/3/uL (0.21-1.20); NEUTROPHILS 84.5 %; NEUTROPHILS ABSOLUTE 5.86 10/3/uL (2.02-8.40); PLATELET COUNT 185 10/3/uL (150-400); RBC DISTRIBUTION WIDTH 17.8 % (12.0-16.0); RED CELL COUNT 2.57 10/6/uL (4.0-5.6); WHITE BLOOD CELLS 6.9 10/3/uL (4.5-10.5)
[2016-12-23 05:42] LABS: MANUAL DIFF NO %
[2016-12-23 06:04] LABS: CALCIUM, SERUM 8.7 MG/DL (8.5-10.4); CHLORIDE, SERUM 111 MMOL/L (96-112); CO2 (CARBON DIOXIDE) 31 MMOL/L (24-34); CREATININE 0.83 MG/DL (0.55-1.02); GFR AFRICAN AMERICAN 79 ML/MIN (>=60); GFR NON AFRICAN AMERICAN 68 ML/MIN (>=60); PHOSPHORUS, SERUM 1.9 MG/DL (2.5-4.5); POTASSIUM, SERUM 4.6 MMOL/L (3.5-5.3); SODIUM, SERUM 149 MMOL/L (135-148)
[2016-12-23 06:05] LABS: BUN (BLOOD UREA NITROGEN) 41 MG/DL (6-23); GLUCOSE, SERUM 125 MG/DL (60-99)
[2016-12-24 11:20] LABS: BASOPHILS 0.2 %; BASOPHILS ABSOLUTE 0.01 10/3/uL (0.0-0.16); EOSINOPHILS 0 %; HEMOGLOBIN 8.4 g/dL (12.0-16.0); IMMATURE GRANULOCYTES 1.7 %; LYMPHOCYTES 11.6 %; MEAN PLATELET VOLUME 9.3 fL (9.2-13.0); NEUTROPHILS 81.5 %; NEUTROPHILS ABSOLUTE 4.93 10/3/uL (2.02-8.40); NUCLEATED RED BLOOD CELLS 2.1 /100WBC (0-0); PLATELET COUNT 193 10/3/uL (150-400); RBC DISTRIBUTION WIDTH 17.5 % (12.0-16.0)
[2016-12-24 11:21] LABS: HEMATOCRIT 29.1 % (36.0-48.0); MANUAL DIFF NO %; MEAN CORPUS HGB CONC 28.9 g/dL (32.0-36.0)
[2016-12-24 11:46] LABS: B NATRIURETIC PEPTIDE (BNP) 836.4 PG/ML (< 100.0)
[2016-12-24 12:12] LABS: A/G RATIO 1.2 (0.7-1.9); ALBUMIN 2.9 G/DL (3.5-5.0); ALKALINE PHOSPHATASE 76 U/L (45-117); BUN (BLOOD UREA NITROGEN) 38 MG/DL (6-23); CHLORIDE, SERUM 111 MMOL/L (96-112); CO2 (CARBON DIOXIDE) 33 MMOL/L (24-34); CREATININE 0.81 MG/DL (0.55-1.02); FREE T4 0.93 NG/DL (0.76-1.46); GFR AFRICAN AMERICAN 82 ML/MIN (>=60); GFR NON AFRICAN AMERICAN 71 ML/MIN (>=60); GLOBULIN 2.5 G/DL (2.5-4.1); GLUCOSE, SERUM 139 MG/DL (60-99); POTASSIUM, SERUM 4.3 MMOL/L (3.5-5.3); SGOT(AST) 13 U/L (5-40); SGPT(ALT) 25 U/L (5-65); SODIUM, SERUM 148 MMOL/L (135-148); TOTAL BILIRUBIN 0.5 MG/DL (0-1.2); TOTAL PROTEIN 5.4 G/DL (6.0-8.5)
[2016-12-24 12:13] LABS: FOLATE 27.9 NG/ML (>5.2); PHOSPHORUS, SERUM 2.5 MG/DL (2.5-4.5)
[2016-12-25 04:54] LABS: BASOPHILS 0.2 %; BASOPHILS ABSOLUTE 0.01 10/3/uL (0.0-0.16); EOSINOPHILS 0.5 %; EOSINOPHILS ABSOLUTE 0.03 10/3/uL (0.0-0.53); HEMATOCRIT 28.3 % (36.0-48.0); HEMOGLOBIN 8.3 g/dL (12.0-16.0); IMMATURE GRANULOCYTES 1.3 %; IMMATURE GRANULOCYTES ABSOLUTE 0.07 10/3/uL (0.0-0.11); LYMPHOCYTES ABSOLUTE 1.54 10/3/uL (0.67-4.30); MEAN CORPUS HGB CONC 29.3 g/dL (32.0-36.0); MEAN CORPUSCULAR HEMOGLOB 28.6 pg (26.0-34.0); MEAN CORPUSCULAR VOLUME 97.6 fL (80-100); MEAN PLATELET VOLUME 9.5 fL (9.2-13.0); MONOCYTES 9.3 %; MONOCYTES ABSOLUTE 0.51 10/3/uL (0.21-1.20); NEUTROPHILS 60.7 %; NEUTROPHILS ABSOLUTE 3.34 10/3/uL (2.02-8.40); PLATELET COUNT 183 10/3/uL (150-400); RBC DISTRIBUTION WIDTH 17.5 % (12.0-16.0); WHITE BLOOD CELLS 5.5 10/3/uL (4.5-10.5)
[2016-12-25 04:55] LABS: MANUAL DIFF NO %
[2016-12-25 05:19] LABS: CALCIUM, SERUM 9.1 MG/DL (8.5-10.4); CHLORIDE, SERUM 111 MMOL/L (96-112); CO2 (CARBON DIOXIDE) 32 MMOL/L (24-34); CREATININE 0.69 MG/DL (0.55-1.02); GFR AFRICAN AMERICAN 98 ML/MIN (>=60); GFR NON AFRICAN AMERICAN 85 ML/MIN (>=60); POTASSIUM, SERUM 3.6 MMOL/L (3.5-5.3); SODIUM, SERUM 149 MMOL/L (135-148)
[2016-12-25 05:21] LABS: BUN (BLOOD UREA NITROGEN) 34 MG/DL (6-23); GLUCOSE, SERUM 90 MG/DL (60-99)
[2016-12-25 11:07] LABS: BUN (BLOOD UREA NITROGEN) 33 MG/DL (6-23); CALCIUM, SERUM 8.5 MG/DL (8.5-10.4); CHLORIDE, SERUM 109 MMOL/L (96-112); CO2 (CARBON DIOXIDE) 34 MMOL/L (24-34); CREATININE 0.82 MG/DL (0.55-1.02); GFR AFRICAN AMERICAN 81 ML/MIN (>=60); GFR NON AFRICAN AMERICAN 70 ML/MIN (>=60); PHOSPHORUS, SERUM 2.2 MG/DL (2.5-4.5); POTASSIUM, SERUM 3.8 MMOL/L (3.5-5.3); SODIUM, SERUM 147 MMOL/L (135-148)
[2016-12-25 11:09] LABS: GLUCOSE, SERUM 121 MG/DL (60-99)
[2016-12-26 08:56] LABS: CALCIUM, SERUM 8.3 MG/DL (8.5-10.4); CHLORIDE, SERUM 110 MMOL/L (96-112); CO2 (CARBON DIOXIDE) 34 MMOL/L (24-34); CREATININE 0.55 MG/DL (0.55-1.02); GFR AFRICAN AMERICAN 106 ML/MIN (>=60); GFR NON AFRICAN AMERICAN 91 ML/MIN (>=60); GLUCOSE, SERUM 98 MG/DL (60-99); PHOSPHORUS, SERUM 2.6 MG/DL (2.5-4.5); POTASSIUM, SERUM 3.9 MMOL/L (3.5-5.3); SODIUM, SERUM 149 MMOL/L (135-148)
[2016-12-26 08:58] LABS: BUN (BLOOD UREA NITROGEN) 27 MG/DL (6-23)
[2016-12-27 04:53] LABS: BASOPHILS 0 %; EOSINOPHILS 0.8 %; EOSINOPHILS ABSOLUTE 0.07 10/3/uL (0.0-0.53); HEMATOCRIT 30.4 % (36.0-48.0); HEMOGLOBIN 9.2 g/dL (12.0-16.0); IMMATURE GRANULOCYTES 0.8 %; IMMATURE GRANULOCYTES ABSOLUTE 0.07 10/3/uL (0.0-0.11); LYMPHOCYTES 17.3 %; LYMPHOCYTES ABSOLUTE 1.61 10/3/uL (0.67-4.30); MEAN CORPUS HGB CONC 30.3 g/dL (32.0-36.0); MEAN CORPUSCULAR HEMOGLOB 28.9 pg (26.0-34.0); MEAN CORPUSCULAR VOLUME 95.6 fL (80-100); MEAN PLATELET VOLUME 9.8 fL (9.2-13.0); MONOCYTES 7.8 %; MONOCYTES ABSOLUTE 0.73 10/3/uL (0.21-1.20); NEUTROPHILS 73.3 %; NEUTROPHILS ABSOLUTE 6.83 10/3/uL (2.02-8.40); PLATELET COUNT 184 10/3/uL (150-400); RBC DISTRIBUTION WIDTH 17.8 % (12.0-16.0); RED CELL COUNT 3.18 10/6/uL (4.0-5.6)
[2016-12-27 04:58] LABS: MANUAL DIFF NO %; WHITE BLOOD CELLS 9.3 10/3/uL (4.5-10.5)
[2016-12-27 05:09] LABS: CALCIUM, SERUM 8.4 MG/DL (8.5-10.4); CHLORIDE, SERUM 109 MMOL/L (96-112); CO2 (CARBON DIOXIDE) 34 MMOL/L (24-34); CREATININE 0.57 MG/DL (0.55-1.02); GFR AFRICAN AMERICAN 104 ML/MIN (>=60); GFR NON AFRICAN AMERICAN 90 ML/MIN (>=60); GLUCOSE, SERUM 86 MG/DL (60-99); SODIUM, SERUM 149 MMOL/L (135-148)
[2016-12-27 05:10] LABS: BUN (BLOOD UREA NITROGEN) 22 MG/DL (6-23)
[2016-12-27 05:52] LABS: PROCALCITONIN <0.05 ng/mL (<0.5)
[2016-12-27 15:59] LABS: OSMOLALITY, URINE 531 MOSM/KG (50-1200)
[2016-12-27 16:00] LABS: SODIUM, URINE 37 MEQ/L
[2016-12-28 04:59] LABS: BASOPHILS 0 %; EOSINOPHILS ABSOLUTE 0.08 10/3/uL (0.0-0.53); HEMATOCRIT 28.4 % (36.0-48.0); HEMOGLOBIN 8.6 g/dL (12.0-16.0); IMMATURE GRANULOCYTES 0.9 %; IMMATURE GRANULOCYTES ABSOLUTE 0.07 10/3/uL (0.0-0.11); LYMPHOCYTES 20.8 %; LYMPHOCYTES ABSOLUTE 1.62 10/3/uL (0.67-4.30); MEAN CORPUS HGB CONC 30.3 g/dL (32.0-36.0); MEAN CORPUSCULAR HEMOGLOB 29.2 pg (26.0-34.0); MEAN CORPUSCULAR VOLUME 96.3 fL (80-100); MONOCYTES 9.7 %; MONOCYTES ABSOLUTE 0.76 10/3/uL (0.21-1.20); NEUTROPHILS 67.6 %; NEUTROPHILS ABSOLUTE 5.27 10/3/uL (2.02-8.40); PLATELET COUNT 177 10/3/uL (150-400); RBC DISTRIBUTION WIDTH 18.3 % (12.0-16.0); RED CELL COUNT 2.95 10/6/uL (4.0-5.6); WHITE BLOOD CELLS 7.8 10/3/uL (4.5-10.5)
[2016-12-28 05:05] LABS: MANUAL DIFF NO %
[2016-12-28 05:07] LABS: INTERNATIONAL NORMAL RATI 1.4 UNITS (-); PARTIAL THROMBO TIME 30.5 SEC (22.5-37.2)
[2016-12-28 05:08] LABS: PROTIME (NOT ORD) 17.1 SEC (12.0-14.5)
[2016-12-28 05:15] LABS: BUN (BLOOD UREA NITROGEN) 22 MG/DL (6-23); CALCIUM, SERUM 8.5 MG/DL (8.5-10.4); CHLORIDE, SERUM 110 MMOL/L (96-112); CO2 (CARBON DIOXIDE) 30 MMOL/L (24-34); CREATININE 0.55 MG/DL (0.55-1.02); GFR AFRICAN AMERICAN 106 ML/MIN (>=60); GFR NON AFRICAN AMERICAN 91 ML/MIN (>=60); GLUCOSE, SERUM 98 MG/DL (60-99); PHOSPHORUS, SERUM 2.2 MG/DL (2.5-4.5); POTASSIUM, SERUM 4.2 MMOL/L (3.5-5.3); SODIUM, SERUM 148 MMOL/L (135-148)
[2016-12-29 06:16] LABS: CALCIUM, SERUM 8.2 MG/DL (8.5-10.4); CHLORIDE, SERUM 102 MMOL/L (96-112); CREATININE 0.57 MG/DL (0.55-1.02); GFR AFRICAN AMERICAN 104 ML/MIN (>=60); GFR NON AFRICAN AMERICAN 90 ML/MIN (>=60); GLUCOSE, SERUM 92 MG/DL (60-99); POTASSIUM, SERUM 3.8 MMOL/L (3.5-5.3); SODIUM, SERUM 145 MMOL/L (135-148)
[2016-12-29 06:20] LABS: BUN (BLOOD UREA NITROGEN) 18 MG/DL (6-23); CO2 (CARBON DIOXIDE) 36 MMOL/L (24-34)
[2016-12-29 08:21] LABS: PHOSPHORUS, SERUM 2.1 MG/DL (2.5-4.5)
== END 2016-12-30 18:30 | DRG 870 ==
LOC: ER 21:24 → IMCU 12-20 00:32 → MIC 12-20 01:22
PROVIDERS: Emergency Medicine; Family Medicine; Internal Medicine; Internal Medicine Critical Care Medicine; Internal Medicine Nephrology
PROC: 5A1955Z Respiratory Ventilation, Greater than 96 Consecutive Hours (ICD-10-PCS; principal; 2016-12-20)
DX: A41.89 Other specified sepsis (principal); J96.21 Acute and chronic respiratory failure with hypoxia; R65.21 Severe sepsis with septic shock; J18.9 Pneumonia, unspecified organism; N17.9 Acute kidney failure, unspecified; G93.40 Encephalopathy, unspecified; E87.2 Acidosis; R53.2 Functional quadriplegia; I50.32 Chronic diastolic (congestive) heart failure; J96.22 Acute and chronic respiratory failure with hypercapnia; N39.0 Urinary tract infection, site not specified; J98.11 Atelectasis; N18.5 Chronic kidney disease, stage 5; Z93.0 Tracheostomy status; I27.2 Other secondary pulmonary hypertension; E66.01 Morbid (severe) obesity due to excess calories; I49.5 Sick sinus syndrome; D63.8 Anemia in other chronic diseases classified elsewhere; J44.9 Chronic obstructive pulmonary disease, unspecified; J45.909 Unspecified asthma, uncomplicated; E87.5 Hyperkalemia; G47.33 Obstructive sleep apnea (adult) (pediatric); Z95.0 Presence of cardiac pacemaker; Z88.2 Allergy status to sulfonamides; Z88.5 Allergy status to narcotic agent; Z79.82 Long term (current) use of aspirin; Z79.899 Other long term (current) drug therapy; Z90.710 Acquired absence of both cervix and uterus; Z98.890 Other specified postprocedural states; Z90.49 Acquired absence of other specified parts of digestive tract; Z87.891 Personal history of nicotine dependence; Z82.3 Family history of stroke; Z82.49 Family history of ischemic heart disease and other diseases of the circulatory system; Z80.8 Family history of malignant neoplasm of other organs or systems; A41.9 Sepsis, unspecified organism; B96.20 Unspecified Escherichia coli [E. coli] as the cause of diseases classified elsewhere
CPT/HCPCS: 31720; 36569-52; 36600; 70450; 71010; 74176; 80048; 80053; 80069; 80076; 80202; 81001; 82140; 82533; 82607; 82746; 82805; 82947; 82962; 83605; 83735; 83880; 83935; 84100; 84132; 84145; 84300; 84439; 84443; 84484; 85025; 85610; 85730; 87040; 87070; 87077; 87086; 87184; 87186; 87205; 87641; 93005; 93880; 94002; 94003; 94640; 94668; 95816; 96374; 96375; 97162-GP; 99291; 99292; A9270-GY; C8929; J0610; J1630; J1953; J2185; J2543; J2920; J2930; J3010; J3370; P9045; P9047; Q9957